=== PATIENT | female | born 1995 | race Caucasian/White ===

== ENCOUNTER 2020-07-05 19:31 | Inpatient (IN) | payer OTHER ==
[~2020-07-05] VITALS: Ht 160 cm; Wt 81.6 kg
[~2020-07-05 19:31] MED LIST: ASPI-667 PO; CHOL500062 PO; ESOM40CA PO; FOLI20CA PO; HYDR-3468 PO; IBUP-1127 PO; IBUP-1131 PO; LURA40TA PO; PREN1COM PO; PREN1TAB59 PO
[2020-07-05] MEDS: OXYTOCIN 30 UNIT/NS 500 ML 500 ML IV PRN ×2 (19:35→20:30)
[2020-07-05] MEDS ORDERED: PITOCIN ONE (19:36)
[2020-07-05] MEDS ORDERED: OXYTOCIN 30 UNIT/NS 500 ML 500 ML IV ONE (19:36)
--- NOTE | 2020-07-05 20:23 | PCM.HP ---
OB-Chief Complaint and HPI Date/Diagnosis Date: Jul 05, 2020 Time: 20:21 Admit Dx: (1) 37 weeks gestation of ICD Codes: Z3A.37 - 37 weeks gestation of SNOMED: 68292713 (2) Precipitous delivery ICD Codes: O62.3 - Precipitate labor SNOMED: 933858514, 799954591 (3) Bipolar disorder ICD Codes: F31.9 - Bipolar disorder, unspecified SNOMED: 14512548 (4) Depression ICD Codes: F32.9 - Major depressive disorder, single episode, unspecified SNOMED: 17973973 (5) Tobacco use ICD Codes: Z72.0 - Tobacco use SNOMED: 171806083 (6) Thrombocytopenia affecting , antepartum ICD Codes: O99.119 - Other diseases of the blood and blood-forming organs and certain disorders involving the immune mechanism complicating , unspecified trimester; D69.6 - Thrombocytopenia, unspecified SNOMED: 294524613, 414938050 Chief Complaint/History(PI) : 7 Para: 2 EDC: Jul 23, 2020 Past Family/Social History Patient History: Asthma Diabetes mellitus 32 MOTHER FH: arthritis 33 FATHER No known health problems G8 BROTHER G8 SISTER No Family History of: Cerebrovascular disorder Chronic obstructive pulmonary disease Congestive heart failure Hypertension Parkinson's disease Unknown Blood Type: O+ Rubella: immune RPR/VDRL: Negative GBS Status: Unknown HBsAG: Negative Provider Note: Pt is a 25 y/o @ 37.3 Who presents via ambulance after precipitous delivery in route. Patient states her water broke while she was making dinner. She called the ambulance and she subsequently delivered in route at 191. Patient presented to our ER department and was transferred to labor and delivery. She delivered the placenta on labor and delivery at 1935. Per nursing uterus was firm and minimal bleeding was noted, no lacerations. is doing well. I entered patient room and she was lying in bed talking to nursing. States that she was doing well and she clearly described the events of her delivery. Currently uncomfortable and requesting pain medication. Patient's is blind and is currently looking for a ride to the hospital. She informs me she has been unable to contact him as their phones are currently off. She states her 2 children are with a family member. Patient mood is stable and she is in NAD EX-Full ROM, NT ABD-Firm fundus -minimal lochia A/ 25 y/o @ 37.3 Precipitous vaginal delivery Bipolar diseaseunmedicated History of depressionunmedicated Tobacco use P/ PP management Plans bottle feeding OB EXAM Physical Exam Vital Signs: Weight: 179 Allergies Coded Allergies Type Severity Reaction Last Updated Verified No Known Allergies 12/01/15 No LABS Laboratory Tests Test 07/06/20 06:00 HIV-1 Antibody NON-REACTIVE (NONREACTIVE) HIV-2 Antibody NON-REACTIVE (NONREACTIVE) Presentation: Carrieic CHAVA BENTLEY DO Jul 05, 2020 20:23
[2020-07-05] MEDS ORDERED: MYLANTA PO PRN (20:30)
[2020-07-05] MEDS ORDERED: DERMOPLAST SPRAY TP PRN (20:30)
[2020-07-05] MEDS ORDERED: NORCO 5MG PO PRN ×2 (20:30)
[2020-07-05] MEDS ORDERED: TYLENOL #3 PO PRN (20:30)
[2020-07-05] MEDS ORDERED: TUCKS TP PRN (20:30)
[2020-07-05] MEDS ORDERED: TYLENOL PO PRN (20:30)
[2020-07-05] MEDS ORDERED: MOTRIN PO PRN (20:30)
[2020-07-05] MEDS ORDERED: LANOLIN HYDROUS TP PRN (20:30)
[2020-07-05] MEDS ORDERED: COLACE PO ONE (21:24)
[2020-07-05] MEDS ORDERED: MOTRIN ONE (21:25)
[2020-07-05] MEDS: COLACE PO SCH (21:32)
[2020-07-06 06:01] LABS: BASOPHIL % 0.3 % (0.0-0.2); EOSINOPHIL # 0.1 10^3/uL (0.0-0.2); EOSINOPHIL % 0.6 % (0.0-5.0); LYMPHOCYTES # 2.82 10^3/uL1 (1.0-4.8); MEAN CORP HGB 28.3 pg (26-34); MONOCYTES # 0.9 10^3/uL (0.3-0.8); MONOCYTES % 7.5 % (5.0-12.0); NEUTROPHIL # 7.9 10^3/uL (1.8-7.7); NEUTROPHILS % 66.8 % (41.0-85.0); PLATELET COUNT 128 10^3/uL (150-400); RED CELL DISTRIBUTION WIDTH 14.8 % (11.5-14.5)
--- NOTE | 2020-07-06 12:09 | NUR ---
CONSULT: SW RECEIVED CONSULT BY PHONE. STAFF INFORMED THIS WORKER THAT CPS HAS REMOVED PT'S TWO OTHER CHILDREN IN THE HOME WHICH FLAGS CONCERN FOR INFANT'S SAFETY. SW SUBMITTED CPS REPORT TO ENSURE SAFETY PRIOR TO DISCHARGE HOME WITH PARENTS. E-Report Confirmation Number: [id number]. SS TO FOLLOW PENDING CPS INVESTIGATION & SAFETY PLAN RELATED TO DISCHARGE OF INFANT.
--- NOTE | 2020-07-06 12:23 | PRM.PN ---
Progress Note Subjective Date: Jul 06, 2020 Time: 12:20 Physician Notes: PPD #1 Patient is doing well today and has no current complaints. Sitting up in bed feeding with a bottle. in room. States that her pain is well controlled with Motrin. Ambulating and urinating without difficulty. Mood stable VS-97.9,18,79,116/72,99% ABD-Firm fundus EX-Full ROM, NT A/ 25 y/o @ 37.3, PPD #1 Precipitous vaginal delivery Bipolar diseaseunmedicated History of depressionunmedicated Tobacco use Bottle feeding Anemia-asymptomatic P/ Continue PP management Plans bottle feeding Pain management prn Social work consult Objective Review IO, Exams,& Results Laboratory Tests Test 07/06/20 05:02 07/06/20 06:00 White Blood Count 11.8 10^3/uL Red Blood Count 3.60 10^6/uL Hemoglobin 10.2 g/dL Hematocrit 30.9 % Mean Corpuscular Volume 85.8 fL Mean Corpuscular Hemoglobin 28.3 pg Mean Corpuscular Hemoglobin Concent 33.0 g/dL Red Cell Distribution Width 14.8 % Platelet Count 128 10^3/uL Mean Platelet Volume 12.0 fL Neutrophils (%) (Auto) 66.8 % Lymphocytes (%) (Auto) 24.0 % Monocytes (%) (Auto) 7.5 % Neutrophils # (Auto) 7.9 10^3/uL Lymphocytes # (Auto) 2.82 10^3/uL1 Monocytes # (Auto) 0.9 10^3/uL Absolute Immature Granulocyte (auto 0.10 10^3 u/L Absolute Eosinophils (auto) 0.1 10^3/uL Immature Granulocytes % 0.80 % Eosinophils % 0.6 % Basophils % 0.3 % Basophils # 0.0 10^3/uL HIV-1 Antibody NON-REACTIVE HIV-2 Antibody NON-REACTIVE Current Medications Medications (Trade) Dose Ordered Sig/[place] PRN Reason Start Time Stop Time Status Last Admin Acetaminophen (Tylenol) 650 mg Q4HR PRN PAIN 1 - 3 07/05/20 20:30 08/04/20 20:29 Acetaminophen/ Codeine Phosphate (Tylenol #3) 1 each Q4H PRN PAIN 4 - 6 07/05/20 20:30 08/04/20 20:29 Acetaminophen/ Hydrocodone Bitart ([place] 5mg) 1 ea Q4HR PRN PAIN 4 - 6 07/05/20 20:30 08/04/20 20:29 Acetaminophen/ Hydrocodone Bitart ([place] 5mg) 2 ea Q4HR PRN PAIN 7 - 10 07/05/20 20:30 08/04/20 20:29 Benzocaine (Dermoplast [place]) To perineum PRN sut... PRN PRN Perineal Pain 07/05/20 20:30 08/04/20 20:29 Docusate Sodium (Colace) 100 mg HS 07/05/20 21:00 08/04/20 20:59 Ibuprofen (Motrin) 800 mg Q6HR PRN CRAMPING 07/05/20 20:30 08/04/20 20:29 07/05/20 21:33 Lanolin (Lanolin Hydrous) Apply to nipples PRN dry, pain... TID PRN pain/cracking 07/05/20 20:30 08/04/20 20:29 Witch Suzi (Tucks) To perineal area ... PRN PRN Hemorrhoids 07/05/20 20:30 08/04/20 20:29 CHAVA Ramirez DO Routine Vital Signs (07/05/20 20:11) Activity Advance As Tolerated (07/05/20 20:11) Ice Pk To Episiotomy/Tear (07/05/20 20:11) Sitz Bath Prn (07/05/20 20:11) Docusate Sodium (Colace) (07/05/20 21:00) Lanolin (Lanolin Hydrous) (07/05/20 20:30) Ibuprofen (Motrin) (07/05/20 20:30) Acetaminophen (Tylenol) (07/05/20 20:30) Hydrocodone/Acetaminophen ([place] 5mg) (07/05/20 20:30) Hydrocodone/Acetaminophen ([place] 5mg) (07/05/20 20:30) Mag Hydrox/Aluminum Hyd/Simeth (Mylanta) (07/05/20 20:30) Benzocaine/Lanolin/Aloe Vera (Dermoplast (07/05/20 20:30) Witch Suzi (Tucks) (07/05/20 20:30) Regular Diet (07/06/20 Breakfast) Admit Orders (07/05/20 20:11) Acetaminophen With Codeine (Tylenol #3) (07/05/20 20:30) Hbsag (Surf Antigen) (07/06/20 05:45) Oxytocin/0.9 % Sodium Chloride (Oxytocin (07/06/20 06:00) Social Service Consult (07/06/20 06:34) CHAVA BENTLEY DO Jul 06, 2020 12:23
[2020-07-06] MEDS: COLACE PO SCH (20:24)
--- NOTE | 2020-07-07 08:31 | NUR ---
FOLLOW-UP CONSULT: ALVARO RECEIVED CALL FROM MATEO BENTLEY CPS TRAINING ANALYST [phone] STATING THAT MARY WATT WILL COME TO THE HOSPITAL TODAY TO INVESTIGATE. MATEO INFORMED THIS WORKER THAT WE ARE NOT TO RELEASE THE INFANT TO THE MOTHER AT THIS TIME, THE OTHER CHILDREN HAVE BEEN REMOVED FROM THE HOME AND ARE CURRENTLY PLACED WITH FAMILY. INFORMATION PROVIDED TO OB NURSING STAFF AT 0830AM. PENDING CPS INVESTIGATION.
--- NOTE | 2020-07-07 08:50 | PRM.PN ---
Assessment/Plan Assessment/Plan PPD #2 Patient is doing well today and has no current complaints. Pain is well controlled with Motrin. Ambulating and urinating without difficulty. in room. Patient in good spirits and awaiting discharge to home. Informs me that she would like to be discharged to get fresh air and smoke. Patient is bottle-feeding. VS97.7,18,88,135/69,100% ABD-firm fundus EX-Full ROM, NT, neg Laura's A/ 25 y/o @ 37.3, PPD #2 Precipitous vaginal delivery Bipolar diseaseunmedicated History of depressionunmedicated Tobacco use Bottle feeding Anemia-asymptomatic P/ Social work consult D/C to home with 2 week f/u CHAVA BENTLEY DO Jul 07, 2020 08:50
--- NOTE | 2020-07-07 08:53 | PRM.DC ---
DISCHARGE SUMMARY Y ADMIT DATE: 07/05/2020 DISCHARGE DATE: 07/07/2020 ADMITTING DIAGNOSIS: Precipitous vaginal delivery via EMS in ambulance at 37.3 weeks DISCHARGE DIAGNOSIS: Same HOSPITAL COURSE: Uncomplicated course PROCEDURES & DATES: 07/07/2020 COMPLICATIONS: None MEDICATIONS: Motrin DISPOSITION: Stable to home ASSESSMENT & PLAN: 25 y/o @ 37.3, PPD #2 Precipitous vaginal delivery-via EMS en route to hospital Bipolar diseaseunmedicated History of depressionunmedicated Tobacco use Bottle feeding Anemia-asymptomatic P/ Social work consult D/C to home with 2 week f/u Motrin Rx to pharmacy Condoms for contraception CHAVA BENTLEY DO Jul 07, 2020 08:53
[2020-07-07] MEDS ORDERED: IBUP-1131 PO (08:55)
[2020-07-07 09:17] VITALS: BP 135/69
== END 2020-07-07 09:55 | disposition home or self-care (01) | DRG 560 ==
LOC: LND 19:31 → EDPENDDISTM 07-07 09:00
PROVIDERS: ADMIT Obstetrics & Gynecology; ATTEND Obstetrics & Gynecology
PROC: 10E0XZZ Delivery of Products of Conception, External Approach (ICD-10-PCS; principal; 2020-07-05)
DX: O62.3 Precipitate labor (principal); Z3A.37 37 weeks gestation of pregnancy; Z37.0 Single live birth; O72.3 Postpartum coagulation defects; O99.345 Other mental disorders complicating the puerperium; D64.9 Anemia, unspecified; F31.9 Bipolar disorder, unspecified; D69.6 Thrombocytopenia, unspecified; F53.0 Postpartum depression; O99.335 Smoking (tobacco) complicating the puerperium; F17.200 Nicotine dependence, unspecified, uncomplicated; Z83.3 Family history of diabetes mellitus; Z82.61 Family history of arthritis
CPT/HCPCS: 36415; 85025; 86318; 86900; 87340; G0378; J2590

== ENCOUNTER 2020-11-13 20:58 | Emergency (ER) | payer OTHER ==
[~2020-11-13] VITALS: Ht 157.5 cm; Wt 74.8 kg
[2020-11-13 21:05] VITALS: BP 114/75
[2020-11-13] MEDS ORDERED: TORADOL ONE (21:52)
[2020-11-13] MEDS: TORADOL IM STA (21:56)
--- NOTE | 2020-11-13 21:59 | ER.PDOC ---
General Chief Complaint: Extremities Stated Complaint: L ARM INJURY/FALL Time seen by MD: 21:57 Source: patient Exam Limitations: no limitations History of Present Illness Initial Comments Left shoulder, arm and forearm pain S/P fall this evening. Patient tripped and fell. She denies hitting her head. Occurred: just prior to arrival Where: work Severity: moderate Injuries/Pain Location: upper extremity Context: Tripped Loss of Consciousness: No Loss of Consciousness Associated Symptoms: denies symptoms Allergies: Coded Allergies: No Known Allergies (Unverified , 12/01/15) MEDS Active Scripts Ibuprofen (IBUPROFEN) 800 Mg Tablet, 800 MG PO Q8HR PRN for CRAMPING for 30 Days, #15 TAB Prov:CHAVA BENTLEY DO 07/07/20 Past Medical History Medical History: asthma Surgical History: cholecystectomy Family History Significant Family History: no pertinent family hx Social History Alcohol Use: none Drug Use: none Review of Systems Constitutional: no symptoms reported Respiratory: no symptoms reported Cardiovascular: no symptoms reported Gastrointestinal: no symptoms reported Musculoskeletal: see HPI All Other Systems: Reviewed and Negative Physical Exam General Appearance: No Apparent Distress, WD/WN Head: No Evidence of Injury Eyes: bilateral eye normal inspection Ears, Nose, Mouth, Throat: Hearing Grossly Normal, No Evidence of ENT Injury, No Dental Injury Neck: Non-Tender, Normal Alignment, Nexus criteria neg, Normal Inspection Cardiovascular/Respiratory: Regular Rate, Rhythm, No M/R/G, Normal Peripheral Pulses, No JVD, Normal Breath Sounds, No Respiratory Distress Gastrointestinal: Normal Bowel Sounds, No Organomegaly, No Pulsatile Mass, Non Tender, Soft Back: Normal Inspection, No CVA Tenderness, No Vertebral Tenderness Extremities: Tenderness (left shoulder, arm and forearm without deformity or swelling.) 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, No Motor/Sensory Deficits, Alert, Normal Mood/Affect, Oriented x 3 Skin: Normal Color, Warm/Dry Tresa Coma Score Best Eye Response: (4) Open Spontaneously Best Verbal Response: (5) Oriented Best Motor Response: (6) Obeys Commands Results/Orders Results/Orders Orders - MARY ANN IVERSON MD Xr Shoulder Lt 2v (11/13/20 21:30) Xr Humerus Lt (11/13/20 21:30) Xr Forearm Lt (11/13/20 21:30) Ketorolac Tromethamine (Toradol) (11/13/20 21:30) Ketorolac Tromethamine (Toradol) (11/13/20 21:52) Vital Signs Date Time Temp Pulse Resp B/P (MAP) Pulse Ox O2 Delivery O2 Flow Rate FiO2 11/13/20 21:05 98.4 75 20 11/13/20 21:05 98.4 75 20 114/75 (88) 98 Room Air 11/13/20 21:05 98.4 75 20 98 Administered Medications Medications (Trade) Dose Ordered Sig/[place] Route PRN Reason Start Time Stop Time Status Last Admin Dose Admin Ketorolac Tromethamine (Toradol) 60 mg STAT STAT IM 11/13/20 21:30 11/13/20 21:33 DC 11/13/20 21:56 60 MG EKG/XRAY/CT/US XRAY Comments: Nothing acute on x rays of left shoulder, arm and forearm ER DEPART Departure Time of Disposition: 23:16 Disposition: 01 HOME, SELF-CARE Impression: Primary Impression: Contusion of shoulder, left Additional Impressions: Arm contusion Contusion of forearm, left Condition: Stable Referrals: JENY URENA MD (PCP) PRIMARY CARE PROVIDER Additional Instructions: Ibuprofen Ice F/U with PCP in 1 week Return to ED if worsening or concerns Duration or Time Spent with Pa: 20 min Problem Qualifiers Primary Impression: Contusion of shoulder, left Encounter type: initial encounter Qualified Codes: S40.012A - Contusion of left shoulder, initial encounter Additional Impressions: Arm contusion Encounter type: initial encounter Laterality: left Qualified Codes: S40.022A - Contusion of left upper arm, initial encounter Contusion of forearm, left Encounter type: initial encounter Qualified Codes: S50.12XA - Contusion of left forearm, initial encounter MARY ANN IVERSON MD Nov 13, 2020 21:59
--- NOTE | 2020-11-13 22:26 | DIREP ---
PROCEDURE:XRAY HUMERUS MIN 2 VWS-LT COMPARISON:None. INDICATIONS:Pain/injury FINDINGS: BONES:Normal. JOINTS:Normal. SOFT TISSUES:Normal. OTHER:No additional findings. CONCLUSION: 1. No acute fracture or dislocation. Dictated by: Lloyd Marion MD on 11/13/2020 at 10:22 PM
--- NOTE | 2020-11-13 22:27 | DIREP ---
PROCEDURE:XRAY SHOULDER MIN 2 VWS-LT COMPARISON:None. INDICATIONS:pain/injury FINDINGS: BONES:Normal. JOINTS:Normal glenohumeral and acromioclavicular joints. No evidence for dislocation. SOFT TISSUES:Normal. OTHER:Normal. CONCLUSION: 1. No acute fracture or dislocation. Dictated by: Lloyd Marion MD on 11/13/2020 at 10:25 PM
--- NOTE | 2020-11-13 22:32 | DIREP ---
PROCEDURE:XRAY FOREARM 2 VWS-LT COMPARISON:None. INDICATIONS:pain FINDINGS: Two views of the left forearm. No fracture or dislocation identified. No radiopaque foreign body. CONCLUSION: 1. Left forearm, unremarkable. Dictated by: Therese Vasquez MD on 11/13/2020 at 10:21 PM
== END 2020-11-13 23:26 | disposition home or self-care (01) ==
LOC: ER 20:58
DX: S40.012A Contusion of left shoulder, initial encounter (principal); S40.022A Contusion of left upper arm, initial encounter; S50.12XA Contusion of left forearm, initial encounter; J45.909 Unspecified asthma, uncomplicated; Z79.1 Long term (current) use of non-steroidal anti-inflammatories (NSAID); Z90.49 Acquired absence of other specified parts of digestive tract; W01.0XXA Fall on same level from slipping, tripping and stumbling without subsequent striking against object, initial encounter; Y93.89 Activity, other specified; Y92.89 Other specified places as the place of occurrence of the external cause; Y99.0 Civilian activity done for income or pay
CPT/HCPCS: 73030; 73060; 73090; 96372; 99284; J1885